=== PATIENT | male | born 1950 | race Caucasian/White ===

== ENCOUNTER → 2016-10-12 | Outpatient (CLI) | payer OTHER, MEDICARE | LOC: BHFA 14:00 | PROVIDERS: ATTEND Internal Medicine Cardiovascular Disease | DX: R94.31 Abnormal electrocardiogram [ECG] [EKG] (principal) | CPT/HCPCS: 78452; 93017; A9500 ==

== ENCOUNTER → 2017-12-12 | Outpatient (CLI) | payer OTHER, MEDICARE | LOC: BHFA 13:15 | PROVIDERS: ATTEND Internal Medicine Cardiovascular Disease | DX: Q21.1 Atrial septal defect (principal); I10 Essential (primary) hypertension; R00.0 Tachycardia, unspecified ==

== ENCOUNTER 2018-01-25 12:11 | Day surgery (SDC) | payer OTHER, MEDICARE ==
[2018-01-25] MEDS ORDERED: LIDOCAINE 1% 300 MG/30 ML SDV SC ONE (12:17)
--- NOTE | 2018-02-26 12:53 | CPIP ---
DATE OF PROCEDURE: 01/25/2018 INDICATIONS/APPROPRIATE USE CRITERIA: The patient has a history of PVCs, as well as presyncope, whic h we have been unable to document on shorter monitors, including a 48 hour Holter monitor, as well as an event recorder. The patient's clinical symptoms are concerning for possible complex ventricular and ectopy and/or ventricular tachycardia. PROCEDURE IN DETAIL: After informed consent was obtained, n.p.o. status was confirmed, the patient w as cleaned, prepped, and draped in sterile fashion over the parasternal area on the left side. The s ubcutaneous tissue was infiltrated with approximately 15 cc of 1% lidocaine. The skin was sharply in cised with a #10 blade and the provided dissection tool was then advanced underneath the skin and int o the subcutaneous tissue in a 45 degrees angle to the left and down. After an adequate tract had be en developed with the provided dissection tool, an MAZ Confirm device was then inserted and under the skin. The model number is [id number]. The serial number [id number]. The skin was then closed with 3 i nterrupted mitzi and hemostasis was achieved with local pressure and stapled closure. FINAL IMPRESSION: Successful loop recorder insertion for indication of suspected complex ventricular ectopy and/or ventricular tachycardia. /[id number]/MODL
== END 2018-01-25 14:00 | disposition home or self-care (01) ==
LOC: FCATH 12:11
PROVIDERS: ATTEND Internal Medicine Cardiovascular Disease
PROC: 0JH60PZ Insertion of Cardiac Rhythm Related Device into Chest Subcutaneous Tissue and Fascia, Open Approach (ICD-10-PCS; principal; 2018-01-25)
DX: I49.3 Ventricular premature depolarization (principal); R55 Syncope and collapse
CPT/HCPCS: C1764

== ENCOUNTER → 2018-03-20 | Outpatient (CLI) | payer OTHER, MEDICARE | LOC: FIMAGING 17:53 | PROVIDERS: ATTEND Physical Medicine & Rehabilitation | DX: S93.692A Other sprain of left foot, initial encounter (principal); S86.312A Strain of muscle(s) and tendon(s) of peroneal muscle group at lower leg level, left leg, initial encounter; M76.62 Achilles tendinitis, left leg; M77.52 Other enthesopathy of left foot and ankle ==

== ENCOUNTER 2018-03-22 08:39 | Inpatient (IN) | payer OTHER, MEDICARE ==
[2018-03-22] MEDS ORDERED: LR 1,000 ML IV ONE (09:05)
[2018-03-22] MEDS ORDERED: VANCOMYCIN 1 GM VIAL ONE (09:43)
[2018-03-22] MEDS ORDERED: SURGIFLO MATRIX KIT WITH THROMBIN 8 ML TP ONE (09:43)
[2018-03-22] MEDS ORDERED: BUPIVACAINE 0.5% 30 ML SDV ONE (09:43)
[2018-03-22] MEDS ORDERED: BACITRACIN 50,000 UNITS/10 ML SYR IRR ONE (09:44)
[2018-03-22 10:02] LABS: PLATELET COUNT 190 10^3/uL (150-400)
--- NOTE | 2018-03-22 10:17 | PDANEPAE ---
ANE History of Present Illness Cervical spinal stenosis ANE Past Medical History - Cardiovascular History Hx Hypertension: Yes Hx Arrhythmias: No Hx Chest Pain: No Hx Coronary Artery / Peripheral Vascular Disease: No Hx CHF / Valvular Disease: No Hx Palpitations: No - Pulmonary History Hx COPD: No Hx Asthma/Reactive Airway Disease: Yes Hx Recent Upper Respiratory Infection: No Hx Oxygen in Use at Home: No Hx Sleep Apnea: No Sleep Apnea Screening Result - Last Documented: Positive - Neurologic History Hx Cerebrovascular Accident: No Hx Seizures: No Hx Dementia: No - Endocrine History Hx Diabetes: No - Renal History Hx Renal Disorders: No - Liver History Hx Hepatic Disorders: No - Neurological & Psychiatric Hx Hx Neurological and Psychiatric Disorders: No - Cancer History Hx Cancer: No - Congenital Disorder History Hx Congenital Disorders: No - GI History Hx Gastrointestinal Disorders: No - Other Health History Other Health History: NONE - Chronic Pain History Chronic Pain: Yes (GENERALIZED, MAINLY BACK) - Surgical History Prior Surgeries: ASD REPAIR 2016. 2005 SHOULDER LABRUM REPAIR ANE Review of Systems Review of Systems: - Exercise capacity METS (RN): 6 METS ANE Patient History - Allergies Allergies/Adverse Reactions: latex Allergy (Verified 03/20/18 16:40) Rash - Home Medications Home medications: home medication list seen and reviewed Home Medications: Neeru Allergy 10/23/15 [Last Taken 03/22/18 07:00] Aspirin EC 81 mg (OTC) 10/23/15 [Last Taken 03/06/18 08:00] Losartan Potassium 10/23/15 [Last Taken 03/21/18 07:00] Fluticasone Nasal 11/02/15 [Last Taken 03/21/18 18:00] PROVENTIL HFA 11/02/15 [Last Taken 11/01/15 09:00] - NPO status NPO Since - Liquids (Date): 03/21/18 NPO Since - Liquids (Time): 20:00 NPO Since - Solids (Date): 03/21/18 NPO Since - Solids (Time): 20:00 - Anes Hx Anes Hx: no prior problems - Smoking Hx Smoking Status: Never smoked - Family Anes Hx Family Hx Anesthesia Complications: none ANE Labs/Vital Signs - Labs Result Diagrams: 03/22/18 09:50 - Vital Signs Blood Pressure: 154/97 Heart Rate: 53 Respiratory Rate: 16 O2 Sat (%): 99 Height: 177.8 cm Weight: 77.111 kg ANE Physical Exam - Airway Neck exam: FROM Mallampati Score: Class 2 - Pulmonary Pulmonary: no respiratory distress - Cardiovascular Cardiovascular: regular rate and rhythym - ASA Status ASA Status: II ANE Anesthesia Plan Anesthesia Plan: general endotracheal anesthesia
[2018-03-22] MEDS ORDERED: ceFAZolin 2 GM/DEXTROSE 100 ML IV ONE (10:20)
[2018-03-22] MEDS ORDERED: TRANEXAMIC ACID 1,000 MG in NS 100 ML IV ONE (10:20)
--- NOTE | 2018-03-22 10:21 | PDHPUP ---
History & Physical Update H&P update statement: This history and physical update is based on an assessment of the patient which was completed after admission or registration (within 24 hours), but prior to the surgery/procedure. H&P update: H&P reviewed & patient examined, no change in patient's condition since H&P completed
[2018-03-22] MEDS ORDERED: MIDAZOLAM 2 MG/2 ML VIAL IVP ONE (10:32)
[2018-03-22] MEDS ORDERED: PROPOFOL/EMULSION 500 MG/50 ML BOTTLE IV ONE (10:43)
[2018-03-22] MEDS ORDERED: fentaNYL 100 MCG/2 ML INJ ONE ×3 (10:43→14:10)
[2018-03-22] MEDS ORDERED: PROPOFOL 200 MG/20 ML VIAL ONE (10:43)
[2018-03-22] MEDS ORDERED: REMIFENTANIL HCL 1 MG VIAL ONE (10:43)
[2018-03-22] MEDS ORDERED: ROCURONIUM 50 MG/5 ML VIAL ONE (10:46)
[2018-03-22] MEDS ORDERED: VASOPRESSIN 20 UNIT/ML VIAL ONE (12:34)
[2018-03-22] MEDS ORDERED: PHENYLEPHRINE HCL 100 MCG/ML SYR ONE (13:08)
[2018-03-22] MEDS ORDERED: NALOXONE HCL 0.4 MG/ML INJ IVP PRN (13:26)
[2018-03-22] MEDS ORDERED: PROMETHAZINE HCL 25 MG/ML INJ IVP PRN (13:26)
[2018-03-22] MEDS ORDERED: ONDANSETRON 4 MG/2 ML VIAL IVP PRN ×2 (13:26→16:47)
[2018-03-22] MEDS ORDERED: MAGNESIUM HYDROXIDE 30 ML UDCUP PO PRN (13:50)
[2018-03-22] MEDS ORDERED: oxyCODONE IR 5 MG TAB PO PRN (13:50)
[2018-03-22] MEDS ORDERED: POLYETHYLENE GLYCOL 3350 17 GM PKT PO PRN (13:50)
[2018-03-22] MEDS ORDERED: BISACODYL 10 MG SUPP PR PRN (13:50)
[2018-03-22] MEDS ORDERED: LACTULOSE 20 GM/30 ML UDCUP PO PRN (13:50)
--- NOTE | 2018-03-22 13:50 | SUROPNOTE ---
[facility] Operative Report - Surgery Date: 03/22/18 Pre-operative Diagnosis: Cervical Spinal Stenosis Post-operative Diagnosis: Same Procedures: C4-6 Posterior Cervical Laminoplasty C3 laminectomy C3-6 Posterior Cervical Decompression Use of autograft Use of intra-operative fluoroscopy Use of intra-operative neuromonitoring, including EMG, MEP, and SSEP modalities Use of a surgical microscope Surgeon: Lico Castillo MD Hosiery Operator: Galilea Leon Anesthesia: General endotracheal anesthesia Findings: Cervical stenosis, degenerative arthritis, facet arthropathy Estimated Blood Loss: 100mL Drains: Hemovac sewn to skin Specimens: None Complications: None Condition: Transferred to PACU in stable condition. Implants: [employer] Synapse system Screws: 6mm x 4 at each level from C4-6 Plates: 6mm x 3 Indications: This patient was seen in my office and diagnosed with cervical spinal stenosis. I have explained all options of treatment for the patient, and the patient has elected to proceed with operative management. I have explained all risks, benefits, and alternatives of the proposed procedure. The risks that we have discussed include , blindness, nerve damage, infection, dural tear, failure of surgery to alleviate pre-operative symptoms, and possible need for further operation. I explained separately the risks of allograft, including infection and disease transfer. In addition to the aforementioned procedure, I discussed with the patient that other procedures may be indicated during the course of surgery. The patient expressed understanding of this and agreed to move forward with operative management. Pre-operative: The proposed incision site was marked in the pre-operative holding area by me. The patient was then taken to the operating room in stable condition. Following smooth induction of general anesthesia, the patient was positioned prone on a Juanpablo table with all down surfaces well-padded. The temporal arteries were palpated and marked out before placement of the head into the Harris pinions. The patients supra-auricular area was then prepped with chlorhexidine. The pins of Harris tongs were then placed onto the skull, taking care to avoid the temporal arteries. The patients posterior cervical skin was then prepped and draped in the usual sterile fashion. Pre-operative antibiotics and tranexamic acid were administered within one hour of the incision. A surgical timeout was performed, and all parties involved in the procedure were in agreement on the correct patient, location, and procedure to be performed. Approach: The proposed levels were identified using C-arm fluoroscopy and the skin was marked for the proposed incision. The skin was then incised sharply through the dermis. Electrocautery was used to dissect the subcutaneous fat down to the level of the posterior cervical fascia. The midline raphe and intermuscular plane was found during the dissection. The fascia was dissected and spread down to the level of the spinous processes. Self-retractors were placed. Fascia and posterior cervical muscles were dissected sub-periostally from the spinous processes and laminae. Spinal pause: Two Nick clamps were then placed on two spinous processes for radiographic identification. A lateral radiograph was taken for identification purposes, and the associated spinous process was marked using a rongeur. A secondary spinal pause was then performed, and the level was confirmed with all parties participating in the operation. Using this radiographic landmark, starting points from for all levels to be fused were exposed. Of note, these clamps were noted to be at the C4/5 supraspinous ligament and the C3 spinous process. Decompression: Bipolar cautery was used to cauterize all bleeding vessels. All paraspinal muscles were dissected sub-periostally from the spinous processes, laminae, and lateral masses to be fused. Using a combination of rongeur, yohan, and Kerrison rongeurs, the spinous processes and laminae were removed to allow for decompression and lateral mass screw placement. At this point, a Zenogenx harmonic bone scalpel was used to perform a complete transection of laminae to be removed. In a "lobster-tail" fashion, the C3 laminae were teased from the dura using blunt instruments. A Soto ball probe was used to ensure thorough decompression of both the exiting and traversing nerve root on both sides. Where necessary, a small Kerrison rongeur was used to decompress remaining bone and soft tissue so that all nerve roots would traverse freely through the foraminae. Laminoplasty C4, 5, and 6 were treated using an open door laminoplasty techinque. A complete cut was made on the patient's left, and a partial hinge cut was made on the right. The laminae were opened to allow for room within the central canal, which was deemed adequate. A cervical laminplasty plate was appliet to the vertebrae, affixed to the lateral mass first and then the floating laamina piece. 4 screws were placed at each level in this fashion. Autograft: At this time, a small amount of autograft from the C3 laminectomy was placed into the right gutter at C4, C5, and C6 to encourage healing at the hinge sites. Xrays: Final xrays were taken and showed appropriately-positioned instruemntation. Closure: The surgical field was then copiously irrigated with sterile saline. Vancomycin powder was then applied to the surgical field. A small drain was placed deep to the fascia and brought out of the skin laterally and caudally. #1 absorbable sutures were used to repair the subfascial muscle in an interrupted fashion. #1 nonabsorbable sutures were used to repair the fascia in two separate layers in an interrupted fashion. 2-0 monofilament suture was then used to approximate the subdermal tissues, and the subcutaneous layer was repaired with a barbed 3- 0 filament in a running fashion. Topical adhesive was then applied to the skin and allowed to dry. A sterile island dressing was applied over the surgical incision. A surgical count was performed before initiation of closure and following the procedure, and all were correct. I was present for the entire procedure. Surgical microscope use: A surgical microscope was utilized throughout the decompressive portion of this case. This was deemed necessary for safe and accurate surgical decompression of affected nerve roots. Neuromonitoring: SSEP, MEP and EMG were used throughout the case from incision until the beginning of closure. There were no significant changes throughout the case, and SSEP signals were at their pre-surgical baseline levels before surgical closure was initiated. manager assisted living: A assembler surgical garment was used throughout the case, and deemed necessary for safe neural retraction, hemostasis, and suction. Recovery: The patient was extubated uneventfully in the operating room. A hard cervical collar was placed on the patient while in bed. The patient was taken to the recovery room in stable condition. Sequential compression devices for VTE prophylaxis were applied to the patients lower extremities, and were ordered to be used while the patient was non-ambulatory. Chemical VTE prophylaxis was considered to be contraindicated for this patient because of the risk of bleeding near the epidural space. Anil Castillo MD
[2018-03-22] MEDS ORDERED: ONDANSETRON 4 MG/2 ML VIAL ONE (14:10)
[2018-03-22] MEDS: fentaNYL 100 MCG/2 ML INJ IVP PRN ×2 (14:14→14:29)
--- NOTE | 2018-03-22 14:18 | POSTANESTH ---
Post Anesthetic Evaluation Cardiovascular Status: Similar to Pre-Op Cond Respiratory Status: Similar to Pre-op Cond. Level of Consciousness/Mental Status: Alert and Oriented, Mildly Sleepy, Arousable Pain Control: Adequate, Prn Tx Ordered, Inadeq, Add Tx Required Nausea/Vomiting Control: Adequate, Prn Tx Ordered
--- NOTE | 2018-03-22 14:50 | PDMN ---
Medical Necessity Medical necessity: Pt meets IP criteria as of 03/22/2018 per and [facility] [place] [facility] ( Cervical Laminectomy); Medicare IP only procedure.
[2018-03-22] MEDS ORDERED: HYDROmorphONE/DILAUDID 2 MG/ML INJ ONE (15:01)
[2018-03-22] MEDS: HYDROmorphONE/DILAUDID 2 MG/ML INJ IVP PRN ×2 (15:05→15:32)
[2018-03-22] MEDS: PROMETHAZINE HCL 25 MG/ML INJ IVP PRN ×2 (17:56→20:32)
[2018-03-22] MEDS ORDERED: SCOPOLAMINE HYDROBROMIDE 1 MG/3 DAYS PATCH TD SCH (18:00)
[2018-03-22] MEDS: METHOCARBAMOL 750 MG TAB PO PRN ×2 (18:03→23:55)
[2018-03-22] MEDS: ACETAMINOPHEN 500 MG TAB PO SCH ×2 (18:08→22:16)
[2018-03-22] MEDS: ceFAZolin 2 GM/DEXTROSE 100 ML IV SCH (18:15)
[2018-03-22] MEDS ORDERED: LR 1,000 ML IV SCH (20:30)
[2018-03-22] MEDS: SENNOSIDES/DOCUSATE SODIUM TAB PO SCH (20:32)
[2018-03-22] MEDS: FAMOTIDINE 20 MG TAB PO SCH (20:32)
[2018-03-22] MEDS: ONDANSETRON DISINTEGRATING 4 MG TAB PO PRN (23:55)
[2018-03-23] MEDS: ceFAZolin 2 GM/DEXTROSE 100 ML IV SCH (02:59)
[2018-03-23] MEDS: ACETAMINOPHEN 500 MG TAB PO SCH (05:32)
[2018-03-23] MEDS: METHOCARBAMOL 750 MG TAB PO PRN (05:34)
[2018-03-23] MEDS: ONDANSETRON DISINTEGRATING 4 MG TAB PO PRN (05:35)
[2018-03-23] MEDS: SENNOSIDES/DOCUSATE SODIUM TAB PO SCH (10:05)
[2018-03-23] MEDS: FAMOTIDINE 20 MG TAB PO SCH (10:05)
[2018-03-23 11:39] VITALS: BP 123/84
--- NOTE | 2018-03-23 13:37 | GPROG ---
I saw evaluated the patient this morning on rounds. He is overall doing quite well. He offers no un usual complaints. He did have quite a bit of nausea last night, which we eventually controlled with various medical managements. On physical exam, his dressing is clean, dry, and intact and left in pl khloe. His drain has a minimal amount of serosanguineous output, as expected. He has no sensory, milena r, or vascular deficits and only reports mild and transient left upper extremity numbness. ASSESSMENT AND PLAN: We will discharge the patient home today, and we will remove his drain. /[id number]/MODL
--- NOTE | 2018-03-23 14:52 | GDS ---
The patient underwent an uneventful C3 to C6 laminectomy and laminoplasty without complication on 09/2017. He did well following the procedure. He noted relief of neck pain. He progressed well wit h physical therapy. He was cleared for discharge home. His pain was well controlled on an oral elmer men. There were no complications, and his vitals were within normal limits. Moving home, the patient has to maintain the collar for 2 weeks anytime he is in an uncontrolled situ ation or sleeping. He can take it off for all other situations including shower. He is to leave the dressing on for 24 hours and remove it 24 hours after he gets home. The patient also has an additional pre surgical booklet with all additional instructions. He has my cell phone if he has any further questions. He has also been prescribed some scopolamine patches, wh ich have been called into his local pharmacy. He can otherwise take a narcotic and muscle relaxer, w hich have been prescribed. He has been told to lay off aspirin for another week and then can resume it. There are no other changes to his home medications. /[id number]/MODL
--- NOTE | 2018-03-23 15:23 | ASMTCMCOM ---
CM Note CM Note Notes: Pt medically stable for d/c, no CM d/c needs identified. PT rec home. Date Signed: 03/23/2018 03:22 PM Electronically Signed By:CHANDRA Garg
[2018-03-25] MEDS ORDERED: PATCH REMOVAL 1 EA PATCH TD ONE (18:00)
== END 2018-03-23 14:02 | disposition home or self-care (01) | DRG 518 ==
LOC: FSGY 08:39 → F3E 13:50 → OBSVTOIN 14:47 → F3N 16:16
PROVIDERS: ADMIT Orthopaedic Surgery Orthopaedic Surgery of the Spine; ATTEND Orthopaedic Surgery Orthopaedic Surgery of the Spine
PROC: 01N10ZZ Release Cervical Nerve, Open Approach (ICD-10-PCS; principal; 2018-03-22 10:45)
PROC: 0RU Upper Joints, Supplement (ICD-10-PCS; principal; 2018-03-22 10:45)
PROC: 4A1004G Monitoring of Central Nervous Electrical Activity, Intraoperative, Open Approach (ICD-10-PCS; principal; 2018-03-22 10:45)
PROC: 00NW0ZZ Release Cervical Spinal Cord, Open Approach (ICD-10-PCS; principal; 2018-03-22 10:45)
DX: M48.02 Spinal stenosis, cervical region (principal); M50.30 Other cervical disc degeneration, unspecified cervical region; I10 Essential (primary) hypertension; I25.10 Atherosclerotic heart disease of native coronary artery without angina pectoris; G47.30 Sleep apnea, unspecified
CPT/HCPCS: 97161-GP; 97165-GO; 97535-GO; C1713; G8978-GP-CJ; G8979-GP-CI; G8987-GO-CI; G8988-GO-CI; G8989-GO-CI; J0690; J1170; J2250; J2370; J2405; J2550; J2704; J3010; J3370